=== PATIENT | female | born 1935 | race Caucasian/White ===

== ENCOUNTER 2017-05-26 22:03 | Inpatient (IN) | payer MEDICARE, MEDICAID ==
[~2017-05-26] VITALS: Ht 152.4 cm; Wt 44.9 kg
[2017-05-26] MEDS ORDERED: ACETAMINOPHEN 325MG TABLET PO ONE (23:45)
[2017-05-27] LABS: HEMATOCRIT. 36.7 % (36.0-48.0); HEMOGLOBIN. 12.1 g/dL (12.0-16.0); MEAN CORPUSCULAR HEMOGLOBIN 29.1 pg (28.0-32.0); MEAN CORPUSCULAR VOLUME 87.9 fL (81.0-99.0); MEAN PLATELET VOLUME 9.6 fl (7.4-10.4); PLATELET 245 x1000/uL (130-400); RED BLOOD CELL COUNT 4.17 mill/uL (4.2-5.4); RED CELL DISTRIBUTION WIDTH 14.7 % (11.6-14.6)
[2017-05-27 00:12] LABS: CARBON DIOXIDE 27 mEq/L (21-32); CHLORIDE 100 mEq/L (98-107); TROPONIN I 0.07 ng/mL (0.00-0.04)
[2017-05-27 00:31] LABS: PLATELET ESTIMATE NORMAL
[2017-05-27] MEDS ORDERED: LEVOFLOXACIN 750MG PREMIX 150 ML IV ONE (00:45)
[2017-05-27 03:00] VITALS: BP 98/64
[2017-05-27] MEDS ORDERED: LORAZEPAM 2MG/ML CPJ IV PRN (06:45)
[2017-05-27 07:32] VITALS: BP 131/65
[2017-05-27] MEDS: FUROSEMIDE 40MG/4ML VIAL IVP SCH (08:40)
[2017-05-27] MEDS: PANTOPRAZOLE SODIUM 40 MG/VIAL IV SCH (08:40)
[2017-05-27] MEDS ORDERED: IPRATROPIUM/ALBUTEROL 0.5-3(2.5)MG/3ML NEB HHN PRN (09:45)
[2017-05-27] MEDS ORDERED: DEXTROSE 50% WATER 50ML SYRINGE IV PRN (09:45)
[2017-05-27 10:00] LABS: BASOPHILS % 0.2 % (0.0-2.0); EOSINOPHILS % 3.7 % (0.0-5.0); HEMATOCRIT. 38.5 % (36.0-48.0); LYMPHOCYTES % 9.9 % (20.0-50.0); MEAN CORPUSCULAR HEMOGLOBIN 29.7 pg (28.0-32.0); MEAN CORPUSCULAR VOLUME 88.2 fL (81.0-99.0); MEAN PLATELET VOLUME 9.6 fl (7.4-10.4); MONOCYTES % 7.3 % (2.0-8.0); NEUTROPHILS % 78.9 % (40.0-76.0); PLATELET 257 x1000/uL (130-400); RED BLOOD CELL COUNT 4.36 mill/uL (4.2-5.4); RED CELL DISTRIBUTION WIDTH 14.2 % (11.6-14.6)
[2017-05-27] MEDS ORDERED: LEVOFLOXACIN 500MG PREMIX 100 ML IV SCH (11:30)
[2017-05-27 11:36] VITALS: BP 156/115
[2017-05-27] MEDS: BLOOD SUGAR DIAGNOSTIC STRIP TEST SCH ×3 (12:10→21:13)
[2017-05-27] MEDS: INSULIN LISPRO 100 UNITS/ML SUBCUT SCH ×3 (12:10→21:00)
[2017-05-27] MEDS ORDERED: ALPRAZOLAM 0.5 MG TABLET PO PRN (12:15)
[2017-05-27] MEDS: IPRATROPIUM/ALBUTEROL 0.5-3(2.5)MG/3ML NEB HHN SCH ×2 (12:27→19:56)
[2017-05-27 15:32] VITALS: BP 105/61
[2017-05-27] MEDS: DEXT 5%/0.45% NACL 1000ML 1,000 ML IV SCH (15:47)
[2017-05-27] MEDS ORDERED: MORPHINE SULFATE 250 MG in DEXT 5% WATER 240 ML IV PRN (16:00)
[2017-05-27 20:00] VITALS: BP 95/73
[2017-05-28] VITALS (7 sets, daily range): BP systolic 89–105; BP diastolic 52–68
[2017-05-28] MEDS: LORAZEPAM 2MG/ML CPJ IV PRN ×2 (00:47→22:50)
[2017-05-28] MEDS: IPRATROPIUM/ALBUTEROL 0.5-3(2.5)MG/3ML NEB HHN SCH ×4 (00:57→20:33)
[2017-05-28 06:46] LABS: BASOPHILS % 0.3 % (0.0-2.0); EOSINOPHILS % 10.4 % (0.0-5.0); HEMOGLOBIN. 11.8 g/dL (12.0-16.0); LYMPHOCYTES % 15.4 % (20.0-50.0); MEAN CORPUSCULAR HEMOGLOBIN 29.7 pg (28.0-32.0); MEAN CORPUSCULAR VOLUME 88.3 fL (81.0-99.0); MEAN PLATELET VOLUME 9.7 fl (7.4-10.4); MONOCYTES % 8.5 % (2.0-8.0); NEUTROPHILS % 65.4 % (40.0-76.0); PLATELET 244 x1000/uL (130-400); RED BLOOD CELL COUNT 3.97 mill/uL (4.2-5.4); RED CELL DISTRIBUTION WIDTH 14.4 % (11.6-14.6)
[2017-05-28] MEDS: BLOOD SUGAR DIAGNOSTIC STRIP TEST SCH ×4 (06:46→21:51)
[2017-05-28] MEDS: INSULIN LISPRO 100 UNITS/ML SUBCUT SCH ×4 (07:50→21:00)
[2017-05-28] MEDS: FUROSEMIDE 40MG/4ML VIAL IVP SCH (10:10)
[2017-05-28] MEDS: PANTOPRAZOLE SODIUM 40 MG/VIAL IV SCH (10:10)
[2017-05-28] MEDS: DEXT 5%/0.45% NACL 1000ML 1,000 ML IV SCH (13:32)
[2017-05-28] MEDS ORDERED: MORPHINE SULFATE 2 MG/ML CPJ (NOT FOR IM USE) IV PRN (15:30)
[2017-05-28] MEDS: MORPHINE SULFATE 4 MG/ML CPJ (NOT FOR IM USE) IV PRN (19:03)
[2017-05-29] VITALS: BP 114/62
[2017-05-29] MEDS: IPRATROPIUM/ALBUTEROL 0.5-3(2.5)MG/3ML NEB HHN SCH ×3 (02:24→16:02)
[2017-05-29] MEDS: MORPHINE SULFATE 4 MG/ML CPJ (NOT FOR IM USE) IV PRN ×2 (02:41→10:19)
[2017-05-29 04:00] VITALS: BP 100/60
[2017-05-29] MEDS: BLOOD SUGAR DIAGNOSTIC STRIP TEST SCH ×4 (05:50→20:50)
[2017-05-29 09:06] VITALS: BP 99/60
[2017-05-29] MEDS: FUROSEMIDE 40MG/4ML VIAL IVP SCH (09:37)
[2017-05-29] MEDS: FAMOTIDINE 20MG/2ML VIAL IV SCH (09:37)
[2017-05-29] MEDS: DEXT 5%/0.45% NACL 1000ML 1,000 ML IV SCH (10:22)
[2017-05-29] MEDS: INSULIN LISPRO 100 UNITS/ML SUBCUT SCH ×4 (10:29→20:55)
[2017-05-29] MEDS ORDERED: LEVOFLOXACIN 750MG PREMIX 150 ML IV SCH (11:00)
[2017-05-29 12:46] VITALS: BP 101/68
[2017-05-29 16:34] VITALS: BP 93/46
[2017-05-29 20:00] VITALS: BP 94/53
[2017-05-29] MEDS: LORAZEPAM 2MG/ML CPJ IV PRN (20:37)
[2017-05-30] VITALS: BP 96/50
[2017-05-30 04:00] VITALS: BP 132/74
[2017-05-30] MEDS: IPRATROPIUM/ALBUTEROL 0.5-3(2.5)MG/3ML NEB HHN SCH ×3 (05:44→13:26)
[2017-05-30] MEDS: LORAZEPAM 2MG/ML CPJ IV PRN ×2 (05:51→12:55)
[2017-05-30] MEDS: BLOOD SUGAR DIAGNOSTIC STRIP TEST SCH ×2 (07:03→12:20)
[2017-05-30] MEDS: INSULIN LISPRO 100 UNITS/ML SUBCUT SCH ×2 (07:50→12:50)
[2017-05-30 08:00] VITALS: BP 95/45
[2017-05-30] MEDS: FAMOTIDINE 20MG/2ML VIAL IV SCH (09:00)
[2017-05-30] MEDS: FUROSEMIDE 40MG/4ML VIAL IVP SCH (09:00)
[2017-05-30 12:00] VITALS: BP 93/55
== END 2017-05-30 14:45 | disposition expired | DRG 871 ==
LOC: ER 22:06 → 6WST 23:41 → EDBEDREQ 05-27 00:49 → ENRESERV 05-27 02:22 → 6EST 05-29 19:30
PROVIDERS: ADMIT Hospitalist; ATTEND Hospitalist
DX: A41.9 Sepsis, unspecified organism (principal); E43 Unspecified severe protein-calorie malnutrition; J96.00 Acute respiratory failure, unspecified whether with hypoxia or hypercapnia; I50.33 Acute on chronic diastolic (congestive) heart failure; I11.0 Hypertensive heart disease with heart failure; J18.1 Lobar pneumonia, unspecified organism; E11.65 Type 2 diabetes mellitus with hyperglycemia; Z99.81 Dependence on supplemental oxygen; Z68.1 Body mass index [BMI] 19.9 or less, adult; F41.9 Anxiety disorder, unspecified; Z51.5 Encounter for palliative care; Z66 Do not resuscitate; M19.90 Unspecified osteoarthritis, unspecified site; Z83.3 Family history of diabetes mellitus; Z85.118 Personal history of other malignant neoplasm of bronchus and lung; Z90.49 Acquired absence of other specified parts of digestive tract; Z82.49 Family history of ischemic heart disease and other diseases of the circulatory system; Z88.8 Allergy status to other drugs, medicaments and biological substances
CPT/HCPCS: 36415; 71010; 80053; 82962; 83605; 83880; 84484; 85025; 87040; 92610; 93005; 94640; 94664; 96365; 99285; C1893; C9113; J1815; J1940; J1956; J2060; J2270; J3490; J7030; J7620